=== PATIENT | female | born 1990 | race African-American/Black ===

== ENCOUNTER 2019-08-26 10:30 | Emergency (ER) | payer OTHER ==
[~2019-08-26] VITALS: Ht 180.3 cm; Wt 94.0 kg
[2019-08-26 11:17] LABS: BASO % 0.2 % (0.0-1.0); EOS % 0.4 % (0.0-3.0); HEMATOCRIT 36.3 % (36.0-47.0); LYMPH # 1.4 10^3/uL (1.5-5.0); LYMPH % 15.9 % (24.0-44.0); MEAN CORPUSCULAR HEMOGLOBIN 30.5 pg (27.0-33.0); MEAN CORPUSCULAR HGB CONC 33.1 g/dl (32.0-36.5); MEAN CORPUSCULAR VOLUME 92.1 fl (80.0-96.0); MONO # 0.5 10^3/uL (0.0-0.8); MONO % 5.7 % (0.0-5.0); NEUTROPHILS # 6.9 10^3/uL (1.5-8.5); NEUTROPHILS % 77.5 % (36.0-66.0); PLATELET COUNT, AUTOMATED 225 10^3/uL (150-450); RED BLOOD COUNT 3.94 10^6/uL (4.00-5.40); WHITE BLOOD COUNT 8.9 10^3/uL (4.0-10.0)
[2019-08-26 11:42] LABS: ALBUMIN 3.5 GM/DL (3.2-5.2); ALT/SGPT 22 U/L (12-78); BILIRUBIN,DIRECT 0.2 MG/DL (0.0-0.2); BILIRUBIN,TOTAL 0.6 MG/DL (0.2-1.0); BLOOD UREA NITROGEN 11 MG/DL (7-18); CALCIUM LEVEL 8.9 MG/DL (8.5-10.1); CARBON DIOXIDE LEVEL 26 MEQ/L (21-32); CHLORIDE LEVEL 108 MEQ/L (98-107); CREATININE FOR GFR 0.96 MG/DL (0.55-1.30); GLOMERULAR FILTRATION RATE > 60.0 (>60); GLUCOSE, FASTING 90 MG/DL (70-100); LIPASE 77 U/L (73-393); SODIUM LEVEL 140 MEQ/L (136-145); TOTAL PROTEIN 7.4 GM/DL (6.4-8.2)
[2019-08-26 11:46] LABS: HCG, SERUM QUALITATIVE NEGATIVE (NEGATIVE)
[2019-08-26] MEDS ORDERED: IBUPROFEN 600 MG TAB PO ONE (12:45)
[2019-08-26] MEDS ORDERED: metroNIDAZOLE (FLAGYL) 500 MG TAB PO ONE (12:45)
[2019-08-26 13:43] LABS: CHLAMYDIA DNA AMPLIFICATION NEGATIVE (NEGATIVE); GC DNA AMPLIFICATION NEGATIVE (NEGATIVE)
[2019-08-26] MEDS ORDERED: FLAG500T PO (13:50)
[2019-08-26] MEDS ORDERED: ZOFR8TAB24 PO (13:51)
[2019-08-26 13:55] VITALS: BP 136/82
--- NOTE | 2019-08-26 14:21 | REP ---
PELVIC ULTRASOUND: Real-time sonographic evaluation of the pelvis performed. Transabdominal and endovaginal technique is utilized. Bladder is empty. Uterus measures 11.0 x 10.0 x 6.6 cm, enlarged and heterogeneous. Three right uterine fibroids are seen. Anteriorly, a fibroid measures 2.9 x 2.1 x 2.5 cm in the fundus 5.6 x 4.2 x 6.5 cm and posteriorly 5.6 x 5.4 x 4.6 cm. Endometrial thickness is 15 mm. Right ovary is not visualized. Left ovary measures 4.8 x 2.1 x 3.0 cm with no evidence of torsion with duplex Doppler evaluation. A 2 cm dominant follicle is seen in the left ovary. No free fluid is seen. IMPRESSION: Fibroid uterus as above. Right ovary cannot be visualized. Dominant follicle left ovary 2 cm in diameter. No other evidence of adnexal mass or free fluid. No left ovarian torsion. Electronically Signed by Jn Valdez MD 08/26/2019 03:41 P
== END 2019-08-26 13:59 | disposition home or self-care (01) ==
LOC: M ED 10:30
DX: N76.0 Acute vaginitis (principal); D25.9 Leiomyoma of uterus, unspecified